=== PATIENT | female | born 1990 | race Hispanic/Latino ===

== ENCOUNTER 2021-06-03 19:11 | Emergency (ER) | payer OTHER ==
[~2021-06-03] VITALS: Ht 157.5 cm; Wt 52.2 kg
[2021-06-03 20:20] LABS: BASOPHILS % (AUTO) 1.1 % (0.0-5.0); EOSINOPHILS % (AUTO) 1.1 % (0.0-8.0); HEMATOCRIT 38.9 % (36-48); LYMPHOCYTES % (AUTO) 27.7 % (21.0-51.0); MEAN CORPUSCULAR HGB CONC 32.9 g/dL (32.0-36.0); MEAN CORPUSCULAR VOLUME 88.2 fL (79-99); MONOCYTES % (AUTO) 5.8 % (3.0-13.0); NEUTROPHILS % (AUTO) 64.1 % (40.0-77.0); PLATELET COUNT (AUTO) 322 K/uL (130-400); RED BLOOD CELL COUNT(AUTO) 4.41 MIL/uL (4.00-5.50); RED CELL DISTRIBUTION WIDTH 12.1 % (11.0-15.5); WHITE BLOOD COUNT (AUTO) 4.5 K/uL (4.8-10.8)
[2021-06-03 20:20] LABS: APPEARANCE,URINE Turbid (CLEAR); BILIRUBIN,URINE Negative (NEGATIVE); COLOR,URINE Yellow (YELLOW); GLUCOSE, URINE (UA) Negative (NEGATIVE); KETONES,URINE Trace mg/dL (NEGATIVE); LEUKOCYTE ESTERASE ,URINE Trace (NEGATIVE); NITRATE,URINE Negative (NEGATIVE); OCCULT BLOOD,URINE Negative (NEGATIVE); PROTEIN,URINE Trace mg/dL (NEGATIVE)
[2021-06-03 20:24] LABS: HCG,QUAL RESULT NEGATIVE (NEGATIVE)
[2021-06-03 20:25] LABS: CREATININE 0.8 mg/dL (0.5-1.5); POTASSIUM 3.8 mmol/L (3.5-5.1)
[2021-06-03 20:28] LABS: AMORPHOUS SEDIMENT,UR Many /LPF (None Seen); BACTERIA,URINE Few /HPF (None Seen); MUCUS,URINE Few LPF (None Seen); SQUAMOUS EPITHELIAL CELL,UR Few /HPF (0-2)
[2021-06-03] MEDS ORDERED: LEVETIRACETAM 500 MG/5 ML SD VIAL IV ONE ×2 (20:28→20:30)
[2021-06-03 20:30] LABS: ALBUMIN 3.9 g/dL (3.5-5.0); BILIRUBIN,TOTAL 0.3 mg/dL (0.2-1.0); TOTAL PROTEIN, SERUM 8.2 g/dL (6.0-8.3)
[2021-06-03] MEDS ORDERED: KETOROLAC 30MG VIAL (30MG/ML) IV ONE (20:30)
[2021-06-03] MEDS ORDERED: 0.9%NACL 1000ML 1,000 ML IV ONE (20:30)
[2021-06-03] MEDS ORDERED: ONDANSETRON 4MG INJ IVP ONE (20:30)
[2021-06-03] MEDS ORDERED: LEVETIRACETAM 1,500 MG in 0.9%NACL 100ML 100 ML IV ONE (20:30)
[2021-06-03] MEDS ORDERED: 0.9%NACL 100ML 100 ML ONE (20:32)
[2021-06-03] MEDS ORDERED: ONDA4TAB10 PO (21:35)
[2021-06-03] MEDS ORDERED: METO-296 PO (21:35)
[2021-06-03 21:51] VITALS: BP 98/58
[2021-06-03] MEDS ORDERED: DiphenhydrAMINE HCL 50 MG/ML VIAL IV ONE (22:00)
== END 2021-06-03 22:35 | disposition home or self-care (01) ==
LOC: EDH 19:11
DX: E86.1 Hypovolemia (principal); R11.0 Nausea; G43.909 Migraine, unspecified, not intractable, without status migrainosus; Z79.1 Long term (current) use of non-steroidal anti-inflammatories (NSAID); Z79.899 Other long term (current) drug therapy; Z98.890 Other specified postprocedural states
CPT/HCPCS: 36415; 80053; 81001; 81025; 85025; 93005; 96365; 96375; 99284; J1200; J1885; J1953 ×3; J2405; J7030